=== PATIENT | male | born 1960 | race Caucasian/White ===

== ENCOUNTER 2019-06-06 06:43 | Inpatient (IN) ==
--- NOTE | 2019-05-24 08:58 | PAT Medication Instructions ---
Medication Instructions Date of Service May 24, 2019 Home Medications ascorbic acid (vitamin C) [Vitamin C] 500 mg PO QAM aspirin 81 mg PO QAM atorvastatin 80 mg PO HS carvedilol 6.25 mg PO BID cholecalciferol (vitamin D3) [Vitamin D3] 1,000 unit PO QAM fenofibrate micronized 200 mg PO QPM lisinopril 2.5 mg PO QPM ASK your surgeon for instructions aspirin 81 mg PO QAM STOP taking 24 hours before surgery fenofibrate micronized 200 mg PO QPM DO NOT take the morning of surgery ascorbic acid (vitamin C) [Vitamin C] 500 mg PO QAM cholecalciferol (vitamin D3) [Vitamin D3] 1,000 unit PO QAM Take morning of surgery With a small sip of water, OTHERWISE NOTHING TO EAT OR DRINK AFTER MIDNIGHT: carvedilol 6.25 mg PO BID Take evening before surgery atorvastatin 80 mg PO HS carvedilol 6.25 mg PO BID lisinopril 2.5 mg PO QPM Other Notes If you have any questions please call us at [phone] or [phone] or [phone] or [phone]
--- NOTE | 2019-05-24 12:23 | Anesthesiology Consultation ---
Date of Service May 24, 2019 Assessment & Plan (1) Encounter for pre-operative examination: -No previous anesthesia records available. Chart Review Chart Review: Acceptable Risk for Surgery and Patient seen in Pre Admission Testing Consults Requested cardiac (Dr. Castaneda (05/29)) Patient was seen on 05/29/19 for preoperative cardiac evaluation. Per note from that visit, "We should proceed with the surgery, accepting the cardiovascular risk involved and under perioperative beta-blockade. An ischemic evaluation is not merited. His bypass surgery was just over 3 years ago." Teaching & Discussion Pre-Anesthesia Teaching/Discussion Notes: Instructed NPO after midnight before surgery, except medications with 15 cc of water. Medication instructions provided according to the PAT guidelines. History Surgery Operation Date: 06/06/19 09:00 Proposed Procedures p Laparoscopic-Assisted Colon Resection, Possible Open - Kevon Arceo MD Height/Weight Height: 5 ft 6 in Weight: 73.9 kg Allergies Allergy/AdvReac Type Severity Reaction Status Date / Time No Known Allergies Allergy Verified 06/06/19 07:11 Medications Home Medications Medication Instructions Recorded Confirmed Last Taken ascorbic acid (vitamin C) [Vitamin 500 mg PO QAM 05/24/19 06/06/19 06/04/19 03:30 C] aspirin 81 mg PO QAM 05/24/19 06/06/19 06/04/19 05:30 atorvastatin 80 mg PO HS 05/24/19 06/06/19 06/04/19 22:00 carvedilol 6.25 mg PO BID 05/24/19 06/06/19 06/06/19 05:30 cholecalciferol (vitamin D3) 1,000 unit PO QAM 05/24/19 06/06/19 06/04/19 03:30 [Vitamin D3] fenofibrate micronized 200 mg PO QPM 05/24/19 06/06/19 06/04/19 18:30 lisinopril 2.5 mg PO QPM 05/24/19 06/06/19 06/05/19 22:00 Active Medications Generic Name Dose Route Start Last Admin Trade Name Freq PRN Reason Stop Dose Admin Lactated Ringer's 1,000 mls @ 15 mls/hr 06/06/19 06:00 06/06/19 07:24 Lr IV 06/07/19 05:59 15 mls/hr .Q24H ALBINA Administration Past Medical History Medical History HTN (hypertension) Hard of hearing Hyperlipemia Mass of colon Myocardial Infarction 03/2016 Exercise / Class Metabolic Activity II 4-5 Yardwork/Stairs/Walk up hill (Able to climb FOS. Denies CP or SOB. ) Past Surgical History Surgical History History of cardiac cath 03/2016 - [facility] - CABG History of colonoscopy History of coronary artery bypass graft 03/2016 - [address] [place] [address] - FOLLOWS W/ DR. CASTANEDA History of incision and drainage LEFT KNEE Past Anesthesia History No Hx of Anesthesia Complications and No Family Hx of Anesthesia Complications History of PONV No Hx of PONV and No Hx of Motion Sickness Social History Smoking Status: Never smoker Do You Dip or Chew Tobacco: No Hx Alcohol Use: No Hx Substance Use: No substance use type: does not use Review of Systems Patient denies chest pain, shortness of breath, dyspnea on exertion, joint pain, reflux, cough, wheezing, palpitations. Physical Exam Vital Signs Last Vital Signs Temp 36.8 C 06/06/19 07:14 Pulse 70 06/06/19 07:14 Resp 18 06/06/19 07:14 BP 126/86 06/06/19 07:14 Pulse Ox 93 06/06/19 07:14 BP: 114/72 P: 66 R: 18 T: 98.2 SPO2: 97% on RA ENMT Thyromental Distance: < 3.5 Finger Breadths (2) Mallampati Class: II Neck normal visual inspection and trachea midline; neck extension not limited Micrognasia Respiratory normal respiratory effort Auscultation: + diminished lung sounds (on right side) Cardiovascular Rate/Rhythm: regular rate and regular rhythm Heart Sounds: no murmur Neurologic moves all extremities Psychiatric Orientation: alert and oriented x 3 Testing Laboratory Results 05/24/19 12:04 05/24/19 12:04 Blood Type A Negative 05/24/19 12:04 Antibody Screen NEGATIVE 05/24/19 12:04 Electrocardiogram Date: 01/23/19 Findings: + NSR @ (71) Inferior infarct - age indeterminate Nonspecific ST/T changes Chest X-Ray Date: 05/24/19 Findings: + NAD Echocardiogram Date: 04/09/16 EF: 45-50% Valvular Disease: + AI (Trace) and + MR (Mild to Moderate) Mild to moderate hypokinesis of the lateral wall, the mid and basal inferolateral wall, and the basal inferior wall. Other Testing US carotid doppler BI 05/24/19 IMPRESSION: 1. No hemodynamically significant stenosis seen within the carotid arteries.
[2019-05-24 12:54] LABS: Basophils # (auto) 0.04 K/uL (0-0.2); Basophils % (auto) 0.7 %; Eosinophils # (auto) 0.27 K/uL (0-0.5); Eosinophils % (auto) 4.9 %; Hematocrit (blood only) 37.4 % (42-52); Hemoglobin 12.5 g/dL (14.0-18.0); Immature Granulocytes # (auto) 0.01 K/uL (0.00-0.02); Immature Granulocytes % (auto) 0.2 %; Lymphocytes # (auto) 1.94 K/uL (1.2-3.4); Lymphocytes % (auto) 35.5 %; Mean Corpuscular Hgb Conc 33.4 g/dL (32-36); Mean Corpuscular Volume 89.9 fL (80-100); Mean Platelet Volume 9.9 fL (7.4-10.4); Monocytes # (auto) 0.56 K/uL (0.11-0.59); Monocytes % (auto) 10.3 %; Neutrophils # (auto) 2.64 K/uL (1.4-6.5); Neutrophils % (auto) 48.4 %; Platelet Count 289 K/uL (130-400); RDW Coefficient of Variation 13.4 % (11.5-14.5); RDW Standard Deviation 43.8 fL (36.4-46.3); Red Blood Count 4.16 M/uL (4.7-6.1); White Blood Count 5.46 K/uL (4.8-10.8)
--- NOTE | 2019-05-24 13:01 | XRay Report ---
XR chest Pre-admission PA/Lat CLINICAL HISTORY: pat preoperative COMPARISON STUDY: No previous studies for comparison. FINDINGS: Prior median sternotomy. Cardiac silhouette is unremarkable. Diaphragms. Lungs are clear. IMPRESSION: No acute process. The above report was generated using voice recognition software. It may contain grammatical, syntax or spelling errors. Electronically signed by: Montana Galvez M.D. 05/24/2019 1:00 PM
[2019-05-24 13:02] LABS: BUN Creatinine Ratio 18.5 (10-20); Calcium 8.8 mg/dl (8.5-10.1); Creatinine Clr Calc Pharmacy 67.7 ml/min; Est GFR (African American) 88.6; Est GFR (Non-African American) 76.4; Potassium 3.6 mmol/L (3.5-5.1)
[~2019-06-06 06:43] MED LIST: LR 15ML/HR IV SCH
[2019-06-06] MEDS ORDERED: fentaNYL citrate 100 MCG/2 ML VIAL ONE ×2 (08:15→10:46)
[2019-06-06] MEDS ORDERED: MIDAZOLAM HCL 1 MG/ML 2ML VIAL ONE (08:15)
--- NOTE | 2019-06-06 09:03 | History & Physical Bridge Note ---
Date of Service June 06, 2019 History & Physical Bridge Note I have examined the patient, reviewed the History & Physical and in the interval since the performance of the History & Physical I have noted the following changes of clinical significance: no changes noted family at bedside all questions answered
[2019-06-06] MEDS ORDERED: BUPIVACAINE 0.5 % 5 MG/1 ML MPF 30ML VIAL ONE (09:37)
[2019-06-06] MEDS ORDERED: KETOROLAC 30 MG/ML VIAL IV PRN (10:03)
[2019-06-06] MEDS ORDERED: ATROPINE SULFATE 0.1 MG/ML 10ML SYR IV PRN (10:03)
[2019-06-06] MEDS ORDERED: LABETALOL HCL IV 5 MG/ML 20ML IV PRN (10:03)
[2019-06-06] MEDS ORDERED: ONDANSETRON INJ 2 MG/ML 2 ML VIAL IV PRN ×2 (10:03→13:30)
[2019-06-06] MEDS ORDERED: ONDANSETRON INJ 2 MG/ML 2 ML VIAL ONE (10:25)
[2019-06-06] MEDS ORDERED: PROPOFOL IV EMULSION 10 MG/ML 20 ML VIAL IV ONE (10:25)
[2019-06-06] MEDS ORDERED: ROCURONIUM BROMIDE 10 MG/ML 5 ML VIAL ONE (10:25)
[2019-06-06] MEDS ORDERED: DEXAMETHASONE SOD INJ 4 MG/ML VIAL ONE (10:25)
[2019-06-06] MEDS ORDERED: LIDOCAINE HCL 2% 2 ML VIAL/AMP(20MG/ML) INFIL ONE (10:25)
[2019-06-06] MEDS ORDERED: GLYCOPYRROLATE 0.2 MG/ML VIAL ONE (10:25)
[2019-06-06] MEDS ORDERED: ePHEDrine sulfate 50 MG/ML SYR ONE (10:32)
--- NOTE | 2019-06-06 11:47 | Post Operative Brief Note ---
Immediate Post Op Note v1 Date of Surgery June 06, 2019 Pre & Post Diagnosis Operation Date: 06/06/19 09:00 Pre-Op Diagnosis: Mass Colon, Hepatic Flexure Post-Op Diagnosis: Mass Colon, Hepatic Flexure Procedure Operation Date: 06/06/19 09:00 Actual Procedures p Laparoscopic-Assisted Right Radical Colectomy(Not Applicable) - Kevon Arceo MD Surgeon Kevon Arceo MD Manager Product Management 0 Estimated Blood Loss 50 Findings Consistent with Post-Op Diagnosis Drains Willis Catheter (inserted by Dr. Arceo, removed at end of procedure) and Rian Drain
--- NOTE | 2019-06-06 12:11 | Operative Report ---
Post Operative Report Pre & Post Diagnosis Operation Date: 06/06/19 09:00 Pre-Op Diagnosis: Mass Colon, Hepatic Flexure Post-Op Diagnosis: Mass Colon, Hepatic Flexure Procedure Operation Date: 06/06/19 09:00 Actual Procedures p Laparoscopic-Assisted Right Radical Colectomy(Not Applicable) - Kevon Arceo MD Patient was brought into the operating theater under general endotracheal anesthesia supine position abdomen was prepped and solution properly draped systemic antibiotics given timeout was had patient identified small incision was made supraumbilically Veress needle insufflated followed by CO2 followed by 5 mm port point of entry inspected no injury identified we then inspected the abdomen could see some sprain from the tattoo in the mesentery towards right lower quadrant could not identify any significant tattoo formation from the omentum and the colon we could see the right colon or cecum as it went up towards the hepatic flexure to see the transverse colon that there was no evidence of any effective in that area and we had the impression that there was some marking the deep to the right gutter peripheral a 5 mm left upper quadrant trocar site was placed preemptive local analgesic use of the grasper we were able to identify that the significant area there was marked with tattoo was right at the proximal hepatic flexure as it went underneath the liver into the right gutter area there was no other evidence of any other notes of evidence of tumor. Point I think we are dealing with a right colon resection and therefore estimated about a 3 inch incision in the midline supraumbilically sufficient that was able to mobilize the right colon all the way to the proximal transverse colon did not have the typical fungating aspects of malignancy but certainly in very to be abnormal just proximal to that fungating lesion at about 5 8 cm there was a small polyps about 0.8 cm that appeared benign. the patient had a very long mesentery of th e appendix that was probably brittle related to his right lower quadrant that came out with the specimen we scored the retroperitoneal to deliver the right colon status also the terminal ileum using application of the MARIVEL to divide the terminal ileum approximately 5 inches from the ileocecal valve and also use another application of the MARIVEL just proximal to the once the stool elevated out of the operative field we then scored the mesentery and divided with 3 hemostats ligated with 2-0 silk suture at the apex of the score the mesentery was right above the duodenum which was marked with silk suture and then closed the mesentery with 3-0 interrupted silk suture prior to doing well was brought together after we had oversewn the staple line with 3-0 interrupted silk suture we did a side to side anastomosis with 3-0 silk our layer 3-0 chromic in a very difficult accommodate in these 2 fingers with close mesentery securely if there was no openings the right: Right gutter was then irrigated the viscera returned in the normal anatomic position the NG tube was positioned in the stomach the wound was closed with #1 PDS starting one cephalad and one caudad interrupted [id number] subcu was irrigated Rian drains quarter-inch was left in the subcu attached to skin edge with 2-0 silk both ends nicole for skin edges dressing was applied seizure was tolerated well by the patient estimated blood loss approximately 50 cc addendum once we had elevated the colon out of the operative field like it palpated attached to which was very near where the lesion was good seal there was approximately 2 cm on size at the end the procedure on the side table I did open it ache the area biopsies were seen and the lesion is pretty much business center representative a little bit larger 2 cm Surgeon Kevon Arceo MD Journalism Professor 0 Estimated Blood Loss 50 Findings Consistent with Post-Op Diagnosis Specimens radical right colon Description of Procedure merda I attest to the content of the Intraoperative Record and any orders documented therein. Any exceptions are noted below.
[2019-06-06] MEDS: HYDROmorphone INJ 1 MG/ML SYRINGE IV PRN ×8 (12:19→12:54)
--- NOTE | 2019-06-06 13:01 | Anesthesiology Progress Note ---
Date of Service June 06, 2019 Anesthesia Post Procedure Vital Signs Vital Signs: Temp Pulse Resp BP Pulse Ox 06/06/19 12:55 51 L 12 122/65 97 06/06/19 12:45 51 L 14 118/68 97 06/06/19 12:35 51 L 16 124/63 95 06/06/19 12:25 52 L 17 106/52 L 97 06/06/19 12:15 53 L 18 133/68 98 06/06/19 12:05 36.4 C L 64 14 132/72 99 06/06/19 07:14 36.8 C 70 18 126/86 93 Pain Intensity Abdomen: Pain Intensity: 5 Transfer of Care Handoff Completed per policy Notes Mental Status: alert / awake / arousable Patient Amnestic to Procedure: Yes Nausea / Vomiting: adequately controlled Pain: adequately controlled Airway Patency, RR, SpO2: stable & adequate BP & HR: stable & adequate Hydration State: stable & adequate Anesthetic Complications: no major complications apparent
[2019-06-06] MEDS ORDERED: ACETAMINOPHEN 1,000 MG/100 ML VIAL IV PRN (13:30)
[2019-06-06] MEDS ORDERED: HYDROmorphone INJ 0.5 MG/0.5 ML SYR IV PRN (13:30)
[2019-06-06] MEDS: LACTATED RINGER'S 1,000 ML IV SCH ×2 (14:07→21:55)
[2019-06-06] MEDS: cefOXitin 2,000 MG in DEXTROSE 5% 50 ML IV SCH ×2 (16:57→22:08)
[2019-06-06] MEDS: CARVEDILOL 6.25 MG TAB PO SCH (20:27)
[2019-06-06] MEDS: HEPARIN SOD 5,000 UNIT/0.5 ML VIAL SQ SCH (22:10)
[2019-06-07] MEDS: HYDROmorphone INJ 1 MG/ML SYRINGE IV PRN ×4 (00:52→21:53)
[2019-06-07] MEDS: cefOXitin 2,000 MG in DEXTROSE 5% 50 ML IV SCH ×2 (03:47→09:39)
[2019-06-07] MEDS: LACTATED RINGER'S 1,000 ML IV SCH ×3 (06:15→21:53)
[2019-06-07] MEDS: HEPARIN SOD 5,000 UNIT/0.5 ML VIAL SQ SCH ×3 (06:16→21:45)
[2019-06-07 07:32] LABS: Basophils # (auto) 0.01 K/uL (0-0.2); Basophils % (auto) 0.1 %; Eosinophils # (auto) 0.02 K/uL (0-0.5); Eosinophils % (auto) 0.3 %; Hematocrit (blood only) 32.4 % (42-52); Hemoglobin 10.9 g/dL (14.0-18.0); Immature Granulocytes # (auto) 0.02 K/uL (0.00-0.02); Immature Granulocytes % (auto) 0.3 %; Lymphocytes # (auto) 1.44 K/uL (1.2-3.4); Lymphocytes % (auto) 18.6 %; Mean Corpuscular Hgb Conc 33.6 g/dL (32-36); Mean Corpuscular Volume 89.3 fL (80-100); Mean Platelet Volume 9.4 fL (7.4-10.4); Monocytes # (auto) 1.14 K/uL (0.11-0.59); Monocytes % (auto) 14.7 %; Platelet Count 275 K/uL (130-400); RDW Coefficient of Variation 13.4 % (11.5-14.5); Red Blood Count 3.63 M/uL (4.7-6.1); White Blood Count 7.73 K/uL (4.8-10.8)
[2019-06-07 08:07] LABS: BUN Creatinine Ratio 12.7 (10-20); Calcium 8.6 mg/dl (8.5-10.1); Creatinine Clr Calc Pharmacy 56.7 ml/min; Est GFR (African American) 72.1; Est GFR (Non-African American) 62.2; Potassium 3.8 mmol/L (3.5-5.1)
--- NOTE | 2019-06-07 08:23 | Surgery Progress Note ---
Date of Service June 07, 2019 Assessment & Plan (1) Colonic mass: POD 1 right colectomy keep on clears H&H stable, Cr 1.25, UOP 1.1 ml/kg/hr subQ heparin Subjective good pain control, tolerating clears, no flatus Physical Exam Gastrointestinal (Abdomen): Inspection/Auscultation: + abdominal surgical incision (some cody drainage, dressing changed); abdomen not distended Percussion/Palpation: abdomen soft Results & Data Vital Signs (Past 12 Hours) Vital Signs Temp Pulse Pulse Resp BP Pulse Ox Pulse Ox 06/07/19 08:08 60 97 06/07/19 08:05 94 06/07/19 07:47 37.0 C 65 16 122/70 89 L 06/07/19 04:05 37.0 C 67 17 116/65 95 06/07/19 00:20 95 06/06/19 23:32 36.8 C 84 17 115/67 95 06/06/19 20:26 81 132/69
[2019-06-07] MEDS: ASPIRIN 81 MG ECTAB PO SCH (09:39)
[2019-06-07] MEDS: CARVEDILOL 6.25 MG TAB PO SCH ×2 (09:39→20:34)
--- NOTE | 2019-06-07 14:33 | Anesthesiology Progress Note ---
Date of Service June 07, 2019 Anesthesia Post Procedure Vital Signs Vital Signs: Temp Pulse Pulse Resp BP Pulse Ox Pulse Ox 06/07/19 12:50 62 94 06/07/19 11:28 36.2 C L 61 18 120/72 97 06/07/19 08:08 60 97 06/07/19 08:05 94 06/07/19 07:47 37.0 C 65 16 122/70 89 L 06/07/19 04:05 37.0 C 67 17 116/65 95 06/07/19 00:20 95 06/06/19 23:32 36.8 C 84 17 115/67 95 06/06/19 20:26 81 132/69 06/06/19 19:57 36.4 C L 77 17 123/65 96 06/06/19 16:30 36.4 C L 75 16 125/77 95 06/06/19 15:31 36.4 C L 78 17 116/68 96 Pain Intensity Abdomen: Pain Intensity: 4 Notes Mental Status: alert / awake / arousable Patient Amnestic to Procedure: Yes Nausea / Vomiting: adequately controlled Pain: adequately controlled Airway Patency, RR, SpO2: stable & adequate BP & HR: stable & adequate Hydration State: stable & adequate Anesthetic Complications: no major complications apparent and Pt Satisfied with anesthetic care
[2019-06-08] MEDS: LACTATED RINGER'S 1,000 ML IV SCH ×3 (05:31→21:08)
[2019-06-08] MEDS: HEPARIN SOD 5,000 UNIT/0.5 ML VIAL SQ SCH ×3 (05:31→21:09)
[2019-06-08] MEDS: CARVEDILOL 6.25 MG TAB PO SCH ×2 (08:18→20:03)
[2019-06-08] MEDS: ASPIRIN 81 MG ECTAB PO SCH (08:18)
[2019-06-08 08:24] LABS: Basophils # (auto) 0.02 K/uL (0-0.2); Basophils % (auto) 0.3 %; Eosinophils # (auto) 0.27 K/uL (0-0.5); Eosinophils % (auto) 3.6 %; Hematocrit (blood only) 35.6 % (42-52); Hemoglobin 11.9 g/dL (14.0-18.0); Immature Granulocytes # (auto) 0.02 K/uL (0.00-0.02); Immature Granulocytes % (auto) 0.3 %; Lymphocytes # (auto) 1.77 K/uL (1.2-3.4); Lymphocytes % (auto) 23.6 %; Mean Corpuscular Hgb Conc 33.4 g/dL (32-36); Mean Corpuscular Volume 91.8 fL (80-100); Mean Platelet Volume 9.5 fL (7.4-10.4); Monocytes # (auto) 0.78 K/uL (0.11-0.59); Monocytes % (auto) 10.4 %; Neutrophils # (auto) 4.63 K/uL (1.4-6.5); Neutrophils % (auto) 61.8 %; Platelet Count 293 K/uL (130-400); RDW Coefficient of Variation 13.4 % (11.5-14.5); RDW Standard Deviation 45.3 fL (36.4-46.3); Red Blood Count 3.88 M/uL (4.7-6.1); White Blood Count 7.49 K/uL (4.8-10.8)
[2019-06-08 09:01] LABS: BUN Creatinine Ratio 9.9 (10-20); Calcium 9.2 mg/dl (8.5-10.1); Creatinine Clr Calc Pharmacy 66.9 ml/min; Est GFR (Non-African American) 75.9; Potassium 3.4 mmol/L (3.5-5.1)
--- NOTE | 2019-06-08 09:01 | Surgery Progress Note ---
Date of Service June 08, 2019 Assessment & Plan (1) Colonic mass: s/p right colectomy continue clears till passing flatus ambulate decrease IVF Present on Admission?: Yes Subjective Feels well no flatus yet taking clears pretty well Review of Systems Constitutional: no fever and no chills Respiratory: no cough and no dyspnea Cardiovascular: no chest pain Gastrointestinal: + abdominal pain (mild); no nausea and no vomiting Integumentary: no rash Psychiatric: no depression Physical Exam Constitutional: well developed and well nourished Neck: trachea midline Respiratory: normal respiratory effort; no respiratory distress Auscultation: lungs clear to auscultation bilaterally Cardiovascular: Rate/Rhythm: regular rate and regular rhythm Gastrointestinal (Abdomen): Inspection/Auscultation: normal bowel sounds; abdomen not distended Percussion/Palpation: + abdomen tender (mild) Musculoskeletal: Head/Neck/Chest: normocephalic and head atraumatic Results & Data Vital Signs (Past 12 Hours) Vital Signs Temp Pulse Resp BP Pulse Ox 06/08/19 07:34 36.6 C 73 16 142/71 H 94 06/07/19 23:34 36.8 C 71 16 115/65 93
[2019-06-09] MEDS: HEPARIN SOD 5,000 UNIT/0.5 ML VIAL SQ SCH ×3 (05:19→21:47)
[2019-06-09] MEDS: LACTATED RINGER'S 1,000 ML IV SCH ×2 (05:22→20:32)
[2019-06-09 06:02] LABS: Basophils # (auto) 0.04 K/uL (0-0.2); Basophils % (auto) 0.5 %; Eosinophils # (auto) 0.41 K/uL (0-0.5); Eosinophils % (auto) 5.5 %; Hematocrit (blood only) 35.4 % (42-52); Immature Granulocytes # (auto) 0.03 K/uL (0.00-0.02); Immature Granulocytes % (auto) 0.4 %; Lymphocytes # (auto) 1.76 K/uL (1.2-3.4); Lymphocytes % (auto) 23.7 %; Mean Corpuscular Hgb Conc 33.9 g/dL (32-36); Mean Corpuscular Volume 89.6 fL (80-100); Mean Platelet Volume 9.9 fL (7.4-10.4); Monocytes # (auto) 0.96 K/uL (0.11-0.59); Monocytes % (auto) 12.9 %; Neutrophils # (auto) 4.22 K/uL (1.4-6.5); Platelet Count 292 K/uL (130-400); RDW Coefficient of Variation 13.2 % (11.5-14.5); RDW Standard Deviation 43.1 fL (36.4-46.3); Red Blood Count 3.95 M/uL (4.7-6.1); White Blood Count 7.42 K/uL (4.8-10.8)
[2019-06-09 06:45] LABS: BUN Creatinine Ratio 8.1 (10-20); Creatinine Clr Calc Pharmacy 74.6 ml/min; Est GFR (African American) 100.4; Est GFR (Non-African American) 86.7; Potassium 3.5 mmol/L (3.5-5.1)
[2019-06-09] MEDS: CARVEDILOL 6.25 MG TAB PO SCH ×2 (08:27→20:33)
[2019-06-09] MEDS: ASPIRIN 81 MG ECTAB PO SCH (08:27)
--- NOTE | 2019-06-09 09:58 | Surgery Progress Note ---
Date of Service June 09, 2019 Assessment & Plan (1) Colonic mass: POD#2 right colectomy bowel function returning advance diet decrease IVF possibly home in AM Present on Admission?: Yes Subjective Doing well passing flatus and liquid BMs pain controlled Review of Systems Constitutional: no fever and no chills Respiratory: no dyspnea Cardiovascular: no chest pain Gastrointestinal: + change in stools (watery BMs); no abdominal pain, no nausea and no vomiting Physical Exam Constitutional: well developed and well nourished Neck: trachea midline Respiratory: normal respiratory effort, lungs clear to auscultation Cardiovascular: RRR, no murmur, no edema Gastrointestinal (Abdomen): Inspection/Auscultation: normal bowel sounds Percussion/Palpation: + abdomen tender (mild) and abdomen soft incision clean/dry Skin: no rashes, warm and dry Results & Data Vital Signs (Past 12 Hours) Vital Signs Temp Pulse Resp BP Pulse Ox 06/09/19 07:59 36.3 C L 74 19 117/73 93 06/08/19 23:30 36.8 C 71 16 137/61 95
[2019-06-10] MEDS: HEPARIN SOD 5,000 UNIT/0.5 ML VIAL SQ SCH (05:43)
[2019-06-10 05:53] LABS: Basophils # (auto) 0.05 K/uL (0-0.2); Basophils % (auto) 0.8 %; Eosinophils # (auto) 0.58 K/uL (0-0.5); Eosinophils % (auto) 9.4 %; Hematocrit (blood only) 36.5 % (42-52); Hemoglobin 12.5 g/dL (14.0-18.0); Immature Granulocytes # (auto) 0.02 K/uL (0.00-0.02); Immature Granulocytes % (auto) 0.3 %; Lymphocytes # (auto) 1.92 K/uL (1.2-3.4); Mean Corpuscular Hgb Conc 34.2 g/dL (32-36); Mean Platelet Volume 9.9 fL (7.4-10.4); Monocytes # (auto) 0.67 K/uL (0.11-0.59); Monocytes % (auto) 10.8 %; Neutrophils # (auto) 2.95 K/uL (1.4-6.5); Neutrophils % (auto) 47.7 %; Platelet Count 311 K/uL (130-400); RDW Coefficient of Variation 13.1 % (11.5-14.5); RDW Standard Deviation 43.2 fL (36.4-46.3); White Blood Count 6.19 K/uL (4.8-10.8)
[2019-06-10 06:20] LABS: BUN Creatinine Ratio 8.6 (10-20); Calcium 9.3 mg/dl (8.5-10.1); Creatinine Clr Calc Pharmacy 70.9 ml/min; Est GFR (African American) 94.4; Est GFR (Non-African American) 81.4; Potassium 3.6 mmol/L (3.5-5.1)
--- NOTE | 2019-06-10 07:33 | Surgery Progress Note ---
Date of Service June 10, 2019 Assessment & Plan (1) Colonic mass: POD 4 s/p lap assisted right radical colectomy path pending plan d/c today, no driving for 3 days, no lifting greater than 10 lbs for one week call office for agust[place] next week POD 1 right colectomy keep on clears H&H stable, Cr 1.25, UOP 1.1 ml/kg/hr subQ heparin Subjective POD 4 feels fine ready to go home Doing well passing flatus and liquid BMs pain controlled Review of Systems Review of Systems: oral intake good, voiding without problems moving bowels Physical Exam Physical Exam: alert in no distress abd neg incision fine cody from sub cut removed Results & Data Vital Signs (Past 12 Hours) Vital Signs Temp Pulse Resp BP Pulse Ox 06/09/19 23:34 36.9 C 73 16 125/73 98 06/09/19 20:32 83 123/78 92
[2019-06-10] MEDS: ASPIRIN 81 MG ECTAB PO SCH (08:29)
[2019-06-10] MEDS: CARVEDILOL 6.25 MG TAB PO SCH (08:29)
--- NOTE | 2019-06-12 01:49 | Discharge Summary ---
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 PROCEDURE PERFORMED: Laparoscopic assisted right radical colectomy. HOSPITAL COURSE: The patient is a 59-year-old male with a hepatic flexure mass taken to the operating room for laparoscopic assisted resection. The tattooed area was identified and right radical colectomy was carried out. The procedure was well tolerated. He was transferred to the surgical floor. He was kept on subcutaneous heparin for DVT prophylaxis and prophylactic antibiotics for 24 hours. He was started on clear liquids on postoperative day #1. He was moving his bowels by postoperative day #3. His diet was advanced. On day #4, he was tolerating regular diet and oral analgesics. His incision was clean and dry. He was stable for discharge. DISCHARGE INSTRUCTIONS: Discharge home. Follow up with Dr. Arceo in 1 week. DISCHARGE MEDICATIONS: Percocet 1-2 tablets every 4 hours as needed, can continue home medications including aspirin 81 mg daily, atorvastatin 80 mg daily, carvedilol 6.25 mg p.o. b.i.d., lisinopril 2.5 mg daily, vitamin D3 supplement, vitamin C supplement. [facility]
== END 2019-06-10 12:13 | disposition home or self-care (01) | DRG 331 ==
LOC: ASU 06:43 → 3N 11:56